=== PATIENT | female | born 1985 | race Caucasian/White ===

== ENCOUNTER → 2017-08-03 | Outpatient (CLI) | payer OTHER ==
--- NOTE | 2017-08-03 12:58 | KCIC ---
MRI left knee without contrast dated 08/03/2017 12:30 PM Indication: Left knee pain , pain located medially for 2 to 3 weeks no known injury, crepitus Comparison: No comparison is available. Technique: Routine multiplanar multisequence imaging performed. No contrast administered. Findings: Bone marrow signal is homogeneous. No marrow edema. Small osteochondral defect of the lateral patellar facet measures up to 9 mm in size. There is associated cartilage thinning with full-thickness cartilage loss. The medial and lateral compartment cartilage is otherwise intact. Small suprapatellar joint effusion. No intra-articular loose body. No significant popliteal cyst. Anterior cruciate and posterior cruciate ligaments are intact. Medial and lateral collateral complexes are intact. Iliotibial band, popliteus tendon and pes anserine complex within normal limits. Quadriceps and patellar tendon are intact. No abnormality of the medial or lateral retinaculum. Mild edema with within the deep infrapatellar fat. Both menisci are normal in morphology and signal. No articular surface tear or para meniscal cyst. IMPRESSION: 1. No evidence of internal derangement. 2. 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 Electronically signed by: Glenn Forde MD (08/03/2017 12:55 PM) [id number]
== END | disposition home or self-care (01) ==
LOC: KCIC MRI 11:47
DX: M94.262 Chondromalacia, left knee (principal)
CPT/HCPCS: 73721